=== PATIENT | female | born 1995 | race Caucasian/White ===

== ENCOUNTER 2018-12-08 01:29 | Emergency (ER) | payer MEDICAID, OTHER ==
[~2018-12-08] VITALS: Ht 147.3 cm; Wt 79.4 kg
[~2018-12-08 01:29] MED LIST: ALBU0.099 IH
[2018-12-08 01:36] VITALS: BP 121/72
[2018-12-08 02:03] LABS: APPEARANCE,URINE CLEAR (CLEAR); BILIRUBIN,URINE NEGATIVE (NEGATIVE); BLOOD, URINE TRACE-I (NEGATIVE); COLOR,URINE YELLOW (YELLOW); LEUKOCYTE ESTERASE ,URINE NEGATIVE (NEGATIVE); NITRITE, URINE NEGATIVE (NEGATIVE); PH,URINE 6.5 (5.0-9.0); UGLUCOSE NEGATIVE (NEGATIVE)
[2018-12-08 02:15] LABS: WBC,URINE 0-5 /HPF (0-5)
[2018-12-08] MEDS ORDERED: DICYCLOMINE HCL LIQUID 20 MG, ALUMINUM HYD/MAG/SIMETHICONE 30 ML, LIDOCAINE VISCOUS 2% ... PO ONE ×3 (03:30)
[2018-12-08 03:40] VITALS: BP 100/64
== END 2018-12-08 03:58 | disposition home or self-care (01) ==
LOC: MED 01:29
DX: R10.10 Upper abdominal pain, unspecified (principal); R10.13 Epigastric pain; R14.0 Abdominal distension (gaseous); J45.909 Unspecified asthma, uncomplicated; Z79.899 Other long term (current) drug therapy; Z88.0 Allergy status to penicillin
CPT/HCPCS: 81001; 81025; 99283

== ENCOUNTER 2020-12-23 11:11 | Emergency (ER) | payer MEDICAID, OTHER ==
[~2020-12-23] VITALS: Ht 144.8 cm; Wt 88.5 kg
[2020-12-23 11:14] VITALS: BP 115/86
--- NOTE | 2020-12-23 11:17 | NUR ---
PT AMBULATED TO ER BED 7 WITH A STEADY GAIT.
--- NOTE | 2020-12-23 11:22 | NUR ---
25 Y/O FEMALE C/O LOWER ABDOMINAL PAIN 08/17 X1DAY. PT STATES SHE IS ALSO HAVING RIGHT BREAST CLEAR-WHITE DISCHARGE. DENIES FEVER/CHILLS. +N/-V. LMP 08/08/20. ABDOMEN IS SOFT, LARGE, NON-TENDER, BOWEL SOUNDS ACTIVE X4. PMH: PCOS ALLERGIES: PCN
--- NOTE | 2020-12-23 11:37 | NUR ---
DR. GALEANA AT PT BEDSIDE FOR FURTHER EVALUATION.
--- NOTE | 2020-12-23 11:47 | NUR ---
Female [employer] accompanied female patient for BREAST Exam.
[2020-12-23] MEDS ORDERED: ONDA8TAB87 PO (11:59)
[2020-12-23] MEDS ORDERED: ACET-8386 PO (11:59)
[2020-12-23] MEDS ORDERED: IBUP-2213 PO (11:59)
[2020-12-23 12:28] VITALS: BP 121/80
--- NOTE | 2020-12-23 12:29 | NUR ---
Patient discharged with v/s stable. Written and verbal after care instructions given and explained. Patient alert, oriented and verbalized understanding of instructions. Ambulatory with steady gait. All questions addressed prior to discharge. ID band removed. Patient advised to follow up with PMD. Rx of NAPROXEN, NORCO, AND GEOVANNY given. Patient educated on indication of medication including possible reaction and side effects. Opportunity to ask questions provided and answered.
== END 2020-12-23 12:25 | disposition home or self-care (01) ==
LOC: MED 11:11
DX: R10.30 Lower abdominal pain, unspecified (principal); R11.0 Nausea; N64.4 Mastodynia; J45.909 Unspecified asthma, uncomplicated; F17.200 Nicotine dependence, unspecified, uncomplicated; Z88.0 Allergy status to penicillin; Z79.899 Other long term (current) drug therapy; Z98.890 Other specified postprocedural states
CPT/HCPCS: 81002; 81025; 99283